=== PATIENT | male | born 1995 | race Two or more races ===

== ENCOUNTER 2018-09-21 13:59 | Emergency (ER) | payer OTHER ==
[~2018-09-21] VITALS: Ht 180.3 cm; Wt 90.3 kg
[2018-09-21 14:08] VITALS: BP 149/70
[2018-09-21] MEDS ORDERED: IBUPROFEN 600 MG TABLET PO ONE (14:34)
[2018-09-21] MEDS ORDERED: IBUPROFEN 400 MG TABLET PO ONE (15:00)
== END 2018-09-21 14:39 ==
LOC: ER 14:02
DX: M94.0 Chondrocostal junction syndrome [Tietze] (principal); F17.200 Nicotine dependence, unspecified, uncomplicated
CPT/HCPCS: 71045-TC